=== PATIENT | female | born 1975 | race Caucasian/White ===

== ENCOUNTER 2022-07-21 09:24 | Outpatient (CLI) | payer MEDICAID, SELFPAY ==
[2022-07-21 15:10] LABS: Chlamydia DNA Amplified* NOT DETECTED (No Detected); GC DNA Amplified* NOT DETECTED (No Detected)
== END 2022-07-21 09:25 | disposition home or self-care (01) ==
PROVIDERS: PCP Emergency Medicine; Visit Provider Registered Nurse
DX: Z01.419 Encounter for gynecological examination (general) (routine) without abnormal findings (principal); N92.0 Excessive and frequent menstruation with regular cycle; Z11.3 Encounter for screening for infections with a predominantly sexual mode of transmission
CPT/HCPCS: 84443; 87491; 87591

== ENCOUNTER 2023-01-02 14:39 | Outpatient (CLI) | payer MEDICAID, SELFPAY | END 2023-01-02 14:40 | disposition home or self-care (01) | PROVIDERS: PCP Emergency Medicine; Visit Provider Emergency Medicine | DX: Z13.1 Encounter for screening for diabetes mellitus (principal); Z13.6 Encounter for screening for cardiovascular disorders | CPT/HCPCS: 80061; 82947 ==

== ENCOUNTER 2024-01-31 16:11 | Outpatient (CLI) | payer MEDICAID, SELFPAY ==
--- OUTSIDE RECORDS SUMMARY | 2024-01-31 16:13 | XMS_ITS | Clinical Summary ---
Author Organization [employer] [facility] Address [place], [place] [address] Care Team Providers Care Technician Test Systems Name Role Phone Tatiana Zamora MD Primary Care Provider + Allergies Active Allergy Reactions Criticality Noted Date Comments Bee Venom Protein (Honey Bee) Hives High 10/17/2020 Cephalexin Stomach Upset High 04/22/2023 Severely sensitive and never wants it Codeine Hives,Itching Unknown 11/26/2009 Medications Medication Sig Dispensed Refills Start Date End Date Status ondansetron (ZOFRAN, HYDROCHLORIDE,) 8 mg tabletIndications:Magdaleno sea & vomiting Take 1 tablet by mouth every 8 hours if needed for Nausea/Vomiting. 20 tablet 0 08/10/2014 Active diphenoxylate-atropin e, 2.5-0.025 mg, (LOMOTIL) 2.5-0.025 mg tabletIndications:Lindy rrhea Take 1 tablet by mouth 4 times daily if needed for Diarrhea. 20 tablet 0 08/10/2014 Active citalopram (CELEXA) 40 mg tabletIndications:Dep ression with anxiety TAKE 1 TABLET BY MOUTH ONCE DAILY. 30 tablet 0 12/24/2014 Active multivitamin (MVI) tablet Take 1 tablet by mouth once daily. 0 10/15/2017 Active predniSONE (DELTASONE) 50 mg tab tabletIndications:Env ironmental allergies Take 1 tablet by mouth once daily with a meal. 10 tablet 10/15/2017 Active predniSONE (DELTASONE) 50 mg tab tabletIndications:Tad h Take 1 tablet by mouth once daily with a meal. 10 tablet 04/17/2018 Active phenazopyridine (Pyridium) 100 mg tabletIndications:Com plicated UTI (urinary tract infection) Take 1 Tablet (100 mg) by mouth three times daily after meals. 12 Tablet 04/27/2023 Active Active Problems Problem Noted Date Diagnosed Date Skin cancer 01/30/2011 Excessive sweating 09/04/2010 Tobacco use disorder 09/04/2010 Depression with anxiety 12/27/2009 Immunizations Name Administration Dates Next Due Hepatitis B (Adult) 06/23/2003,02/10/2003,2002 Influenza A (H1N1), Inactivated 04/26/2009 Influenza A (H1N1), Inactiva celestino (Age >=3 Years) 04/19/2009 Influenza, IIV3 (Age 6-35 mos) 03/09/2011,2009 Influenza, IIV3 (Age >=3 years) 04/17/20 12,03/09/2011,02/18/2010,2008,05/30/2005,06/23/2003 Influenza, IIV4 02/29/2016 Tdap 12/01/2010 Family History Medical History Relation Name Comments Diabetes Mother Hypertension Other 1 grandparents, s ibling Stroke Other 2 grandmother Cancer Other 3 grandfather Heart Disease Other 4 extended famil y Hypertension Other 5 grandparents Hyperlipidemia Other 6 grandparents Alcohol/Drug Other 7 grandparents Relation Name Status Comments Mother Other 1 Other 2 Other 3 Other 4 Other 5 Other 6 Other 7 Social History Tobacco Use Types Packs/Day Years Used Date Smoking Tobacco: Every Day Cigarettes 0.3 32.6 Started: 1991 Smokeless Tobacco: Never Tobacco Cessation:Ready to Q uit: Not Asked; Counseling Given: Not Answered Alcohol Use Standard Drinks/Week Comments Yes 3.3 (1 standard drink = 0.6 oz p ure alcohol) PHQ-2 Answer Date Recorded PHQ-2 Score 0 08/12/2018 Sex and Gender Information Value Date Recorded Sex Assigned at Not on file Gender Identity Not on file Sexual Orientation Not on file Obstetrics History Last Filed Vital Signs Vital Sign Reading Time Taken Comments Blood Pressure 127/73 04/22/2023 6:50 PM COOK RELIEF Pulse 65 04/22/2023 6:50 PM COOK RELIEF Temperature 36.3 ??C (97.3 ??F) 04/22/2023 6:50 PM CS T Respiratory Rate 18 04/22/2023 6:50 PM COOK RELIEF Oxygen Saturation 100% 04/22/2023 6:50 PM COOK RELIEF Inhaled Oxygen Concentration - - Weight 69.9 kg (154 lb) 11/02/2017 1:55 PM CDT Height 175.3 cm (5' 9) 10/15/2017 2:39 PM CDT w ith shoes Body Mass Index 22.74 10/15/2017 2:39 PM CDT Plan of Treatment Health Maintenance Due Date Last Done Comments HIV for age 15-65 1989 Hepatitis C screening for age 18-79 1992 BMI (ht and wt on same day) for age 18+ 10/15/2018 10/15/2017 Depression screening for age 12+ 10/15/2018 10/15/2017 Colonoscopy through age 75 11/30/2019 Lipids for age 45-75 11/30/2019 Mammogram for age 45-75 11/30/2019 Tetanus booster 12/01/2020 12/01/2010 COVID-19 vaccine series ( season) 2023 Influenza for age 9-49 02/10/2024 6, 06/10/2014 (Completed outside of [facility]), 04/17/2012, Additional history exists Pap test for age 21-65 07/21/2025 3, 07/21/2022, 10/21/2020, Additional history exists Tdap Completed 12/01/2010 Pneumococcal series for age 6-64 Aged Out No longer eligible based on patient's age to complete this topic Procedures Procedure Name Priority Date/Time Associated Diagnosis Comments HPV THIN PREP Routine 07/21/2022 12:00 PM COOK RELIEF from Last 3 Months or Most Recently Relevant to Health Maintenance Results * HPV HIGH RISK (07/21/2022 12:00 PM COOK RELIEF) TYPE 16 Negative Negative 07/26/2022 11:23 AM COOK RELIEF [facility] TYPE 18 Negative Negative 07/26/2022 11:23 AM COOK RELIEF [facility] OTHER HIGH RISK TYPES Negative Negative 07/26/2022 11:23 AM COOK RELIEF [facility] Other (Cervical) 07/21/2022 12:00 PM COOK RELIEF 07/24/2022 8:18 AM COOK RELIEF Narrative [facility] - 07/26/2022 11:23 AM COOK RELIEF HPV types 16, 18, 31, 33, 35, 39, 45, 51, 52, 56, 58, 59, 66 and 68 DNA were undetectable or below the pre-set threshold. Methodology: Jennifer Ciara 4800 HPV Test Vicky Grigsby NP MICROBIOLOGY [facility] [address] [place] [address], from Last 3 Months or Most Recently Relevant to Health Maintenance Care Teams Technician Test Systems Relationship Specialty Start Date End Date Tatiana Zamora MD PCP - General 12/16/09
--- OUTSIDE RECORDS SUMMARY | 2024-01-31 16:13 | XMS_ITS | Referral Summary ---
Author Organization [place] Address [address] [place] [address] Care Team Providers Care Waterworks Operator Name Role Phone Clinic - Jonelle Myers [facility] Provider Allergies Active Allergy Reactions Criticality Noted Date Comments Bees Hives High 10/17/2020 Codeine 09/04/2003 Medications Medication Sig Dispensed Refills Start Date End Date Status CITALOPRAM HYDROBROMIDE 40 MG OR TABSIndications:Dep ressive disorder, not elsewhere classified,Anxiety state, unspecified 1 TABLET DAILY; must be seen 30 0 09/14/2008 Active Additional Information Patient not taking.Reported on 08/08/2019 predniSONE (DELTASONE) 20 MG tabletIndications:A cute bronchitis, unspecified organism,Wheezing Take 1 tablet (20 mg) by mouth daily 5 tablet 08/08/2019 Active benzonatate (TESSALON) 100 MG capsuleIndications: Acute bronchitis, unspecified organism Take 1 capsule (100 mg) by mouth 3 times daily as needed for cough 30 capsule 08/08/2019 Active albuterol (PROAIR HFA/PROVENTIL HFA/VENTOLIN HFA) 108 (90 Base) MCG/ACT inhalerIndications: Wheezing Inhale 2 puffs into the lungs every 4 hours as needed for shortness of breath / dyspnea or wheezing 18 g 09/30/2019 Active triamcinolone (KENALOG) 0.1 % external creamIndications:De rmatitis Apply topically 2 times daily 30 g 11/26/2019 Active Active Problems Problem Noted Date Diagnosed Date CARDIOVASCULAR SCREENING; LDL GOAL LESS THAN 160 07/21/2009 Anxiety state 11/28/2006 Overview: Problem list name updated by automated process. Provider to review situational depression 07/20/2005 Allergic rhinitis 02/20/2005 Overview: Problem list name updated by automated process. Provider to review Immunizations Name Administration Dates Next Due Influenza (IIV3) PF 05/30/2005 Social History Tobacco Use Types Packs/Day Years Used Date Smoking Tobacco: Every Day Comments:1 pk weekly of and on mostly the last 6 months--had quit for 2 yrs Alcohol Use Standard Drinks/Week Comments No 0 (1 standard drink = 0.6 oz pur e alcohol) Adolescent Education Answer Date Record ed Getting School Help Needed Not on file 03/18 Sex and Gender Information Value Date Recorded Sex Assigned at Not on file Gender Identity Not on file Sexual Orientation Not on file Last Filed Vital Signs Vital Sign Reading Time Taken Comments Blood Pressure 127/84 10/17/2020 8:45 AM CDT Pulse 68 10/17/2020 5:50 AM CDT Temperature 36.5 ??C (97.7 ??F) 10/17/2020 5:37 AM CD T Respiratory Rate 22 10/17/2020 5:37 AM CDT Oxygen Saturation 99% 10/17/2020 8:45 AM CDT Inhaled Oxygen Concentration - - Weight 54.9 kg (121 lb) 08/08/2019 5:05 PM STEREO COMPILER Height 174 cm (5' 8.5) 09/11/2007 1:30 PM CDT Body Mass Index - - Plan of Treatment Not on file Advance Directives For more information, please contact: [phone] * No Code Status (Latest Code Status on File) Date Activated Date Inactivated Comments 05/24/2004 9:39 AM 05/24/2004 10:39 AM Care Teams Waterworks Operator Relationship Specialty Start Date End Date Clinic - [facility] [address] [address] [address] PCP - General 01/18/22
--- OUTSIDE RECORDS SUMMARY | 2024-01-31 16:13 | XMS_ITS | Encounter Summary ---
Author Organization [place] Address [facility] [place] [address] Care Team Providers Care Warehouse Packer Name Role Phone Shy Dennis MD Primary Care Provider Unavailab Shy Marion MD Unavailable Unavailable [facility] Primary Ca re Provider Reason for Visit * Reason Onset Date Comments Derm Problem 11/25/2019 for e-visit Encounter Details Date Type Department Care Team (Late st Contact Info) Description 11/25/2019 MyC Medical Advice [facility] [address] [place] [phone] Shy Dennis MD Derm Problem (for e-visit) Social History Tobacco Use Types Packs/Day Years Used Date Smoking Tobacco: Every Day Comments:1 pk weekly of and on mostly the last 6 months--had quit for 2 yrs Alcohol Use Standard Drinks/Week Comments No 0 (1 standard drink = 0.6 oz pur e alcohol) Sex and Gender Information Value Date Recorded Sex Assigned at Not on file Gender Identity Not on file Sexual Orientation Not on file documented as of this encounter Miscellaneous Notes * Telephone Encounter - Zarina Helm RN - 11/25/2019 2:57 PM CDT Will forward to Dr. Dennis - documented in this encounter Plan of Treatment Not on file documented as of this encounter Visit Diagnoses Not on filedocumented in this encounter Care Teams Warehouse Packer Relationship Specialty Start Date End Date Shy Dennis MD PCP - General 12/20/01 01/17/22 [facility] - Jonelle Marroquin [facility] [address] [place] [address] PCP - General 01/18/22 Shy Dennis MD Assigned PCP 11/06/19 12/23/20 documented as of this encounter
--- OUTSIDE RECORDS SUMMARY | 2024-01-31 16:13 | XMS_ITS | Clinical Summary ---
Author Organization [place] Address [address] [facility] [place] [address] Care Team Providers Care Felt Hat Inspector And Packer Name Role Phone Clinic - Jonelle Myers [facility] Provider Allergies Active Allergy Reactions Criticality Noted [...] Dates Next Due Influenza (IIV3) PF 05/30/2005 Family History Medical History Relation Comments Family History Negative Father Family History Negative Mother Relation Status Comments Father Mother Social History Tobacco Use Types Packs/Day Years [...] 54.9 kg (121 lb) 08/08/2019 5:05 PM ADHESIVE PRIMER Height 174 cm (5' 8.5) 09/11/2007 1:30 PM CDT Body Mass Index - - Plan of Treatment Not on file Advance Directives For more information, please contact: [phone] * No Code Status (Latest Code Status on File) Date Activated Date Inactivated Comments 05/24/2004 9:39 AM 05/24/2004 10:39 AM Care Teams Felt Hat Inspector And Packer Relationship Specialty Start Date End Date Clinic - Jonelle Myers [facility] [address] [address] [address] PCP - General 01/18/22
== END 2024-01-31 16:12 | disposition home or self-care (01) ==
LOC: FRMREF 16:11
PROVIDERS: PCP Emergency Medicine; Visit Provider Registered Nurse
DX: N92.0 Excessive and frequent menstruation with regular cycle (principal)
CPT/HCPCS: 84443

== ENCOUNTER 2024-03-11 12:45 | Outpatient (CLI) | payer MEDICAID, SELFPAY ==
--- OUTSIDE RECORDS SUMMARY | 2024-03-11 12:51 | XMS_ITS | Clinical Summary ---
Author Organization [facility] Address [place], [place] [address] Care Team Providers Care Integration Analyst Name Role Phone Tatiana Zamora MD Primary [...] Date Smoking Tobacco: Every Day Cigarettes 0.3 32.7 Started: 1991 Smokeless Tobacco: Never Tobacco Cessation:Ready [...] Comments Blood Pressure 127/73 04/22/2023 6:50 PM [employer] Pulse 65 04/22/2023 6:50 PM [employer] Temperature 36.3 ??C (97.3 ??F) 04/22/2023 6:50 PM CS T Respiratory Rate 18 04/22/2023 6:50 PM [employer]OL[employer]RIER Oxygen Saturation 100% 04/22/2023 6:50 PM [employer]RI[employer] Inhaled Oxygen Concentration - - Weight 69.9 [...] 12/01/2020 12/01/2010 COVID-19 vaccine series ( season) 2024 Influenza for age 9-49 02/10/2024 6, 06/10/2014 (Completed outside of [facility]), 04/17/2012, Additional history exists Pap test for age 21-65 07/21/2025 3, 07/21/2022, 10/21/2020, Additional history exists Tdap Completed 12/01/2010 Pneumococcal series for age 6-64 Aged Out No longer eligible based on patient's age to complete this topic Procedures Procedure Name Priority Date/Time Associated Diagnosis Comments HEALTH AND SAFETY TECH THIN PREP PAP SCREEN IMAGED Routine 07/21/2022 12:00 PM [employer] SPR[employer]RIER from Last 3 Months or Most Recently Relevant to Health Maintenance Results * HEALTH AND SAFETY TECH THIN PREP PAP SCREEN IMAGED (07/21/2022 12:00 PM [employer]) Case Report Gynecologic Cytology Report ? Case: [id number] ? Authorizing Provider: ??Vicky Grigsby, SHELLIE ?? Collected: ? 07/21/2022 1200 ? Ordering Location: ? [facility] ?Received: ?07/24/2022 0818 ? First Screen: ?Tali West ? Rescreen: ?Charisma Yepez ? Specimen: ?HEALTH AND SAFETY TECH ThinPrep Vial Screening, Cervical ? 08/10/2022 6:13 PM [facility] INTERPRETATION/ RESULT NEGATIVE FOR INTRAEPITHELIAL LESION OR MALIGNANCY (NIL) (none) 08/10/2022 6:13 PM [facility]TRAL [facility] NISM(S) Shift in jorge suggestive of bacterial vaginosis 08/10/2022 6:13 PM [facility] ENTRAL LABORATORY SPECIMEN ADEQUACY Satisfactory for evaluation Endocervical component present 08/10/2022 6:13 PM [facility] LABORATORY-C ENTRAL LABORATORY HPV REQUEST HPV and PAP 08/10/2022 6:13 PM [facility] [employer] LABORATORY-C ENTRAL LABORATORY Date of LMP 07/12/2022 08/10/2022 6:13 PM [facility] ENTRAL LAB[facility]ATORY Last Pap Date 10/21/2020 08/10/2022 6:13 PM [facility] [employer] [employer] LABORATORY- ENTRAL LABORATORY Last Pap Result UNS 6:13 PM [facility] [employer]- ENTRAL LABORATORY Abnormal Pap or [place] Bx in last 5 years No 08/10/2022 6:13 PM [facility] [employer]-C ENTRAL LABORATORY Menstrual Status Regular Periods 08/10/2022 6:13 PM [facility] [employer] [facility] [place] Bx Done Today No 08/10/2022 6:13 PM [facility] [employer] [facility] ENTRAK LABORATORY Additional Information 08/10/2022 6:13 PM [facility] [employer] ENTRAL LABORATORY Comment: Interpreted at [facility] [employer] [facility] - [address], [place] [address] Automated Review Successful 08/10/2022 6:13 PM [facility] [employer] [facility] ENTRAK LABORATORY Comment:Specimen processed s uccessfully by automated propeller driven airplane mechanic device, ThinPrep Imaging System, [employer] ANCILLARY TESTING HEALTH AND SAFETY TECH HPV Ordered, Please see separate report 08/10/2022 6:13 PM [facility] Note The pap test is a screening technique, not a diagnostic procedure. It is used primarily to screen for squamous cancers and precursor lesions. Published studies have shown that it is subject to both false negative and false positive results. The pap test should not be used as the sole means to diagnose or exclude pre-malignant and malignant lesions. 08/10/2022 6:13 PM [facility] [employer] Other (Cervical) 07/21/2022 12:00 PM [employer] 07/24/2022 8:18 AM [employer] Vicky Grigsby NP PATHOLOGY/CYTOLOG Y [facility] [address] [place] [address], [place] from Last 3 Months or Most Recently Relevant to Health Maintenance Care Teams Integration Analyst Relationship Specialty Start Date End Date Tatiana Zamora MD PCP - General 12/16/09
--- OUTSIDE RECORDS SUMMARY | 2024-03-11 12:52 | XMS_ITS | Encounter Summary ---
Author Organization [place] Address [facility] [place] [address] Care Team Providers Care Shear Tender Name Role Phone Shy Dennis MD Primary Care Provider Unavailab Shy Marion MD Unavailable Unavailable [facility] Primary Ca re Provider Reason for Visit * Reason Onset Date Comments Derm Problem 11/25/2019 for e-visit Encounter Details Date Type Department Care Team (Late st Contact Info) Description 11/25/2019 MyC Medical Advice [facility] [address] [place] [phone] Syh Dennis MD Derm Problem (for e-visit) Social [...] on filedocumented in this encounter Care Teams Shear Tender Relationship Specialty Start Date End Date Shy Dennis MD PCP - General 12/20/01 01/17/22 [facility] - Jonelle Marroquin [facility] [address] [place] [address] PCP - General 01/18/22 Shy Dennis MD Assigned PCP 11/06/19 12/23/20 documented as of this encounter
--- OUTSIDE RECORDS SUMMARY | 2024-03-11 12:52 | XMS_ITS | Clinical Summary ---
Author Organization [place] Address [address] [place] [address] Care Team Providers Care Medical Support Specialist Name Role Phone Clinic - Jonelle Myers [facility] Provider Allergies Active Allergy Reactions Criticality Noted [...] 54.9 kg (121 lb) 08/08/2019 5:05 PM MANAGER BACKGROUND Height 174 cm (5' 8.5) 09/11/2007 1:30 PM CDT Body Mass Index - - Plan of Treatment Not on file Advance Directives For more information, please contact: [phone] * No Code Status (Latest Code Status on File) Date Activated Date Inactivated Comments 05/24/2004 9:39 AM 05/24/2004 10:39 AM Care Teams Medical Support Specialist Relationship Specialty Start Date End Date Clinic - Jonelle Myers [facility] [address] [address] [address] PCP - General 01/18/22
--- OUTSIDE RECORDS SUMMARY | 2024-03-11 12:52 | XMS_ITS | Referral Summary ---
Author Organization [employer] [place] Address [address] [place] [address] Care Team Providers Care Valve Tester Name Role Phone Clinic - Jonelle Myers [facility] Provider Allergies Active Allergy Reactions Criticality [...] 54.9 kg (121 lb) 08/08/2019 5:05 PM ALGEBRA TUTOR Height 174 cm (5' 8.5) 09/11/2007 1:30 PM CDT Body Mass Index - - Plan of Treatment Not on file Advance Directives For more information, please contact: [phone] * No Code Status (Latest Code Status on File) Date Activated Date Inactivated Comments 05/24/2004 9:39 AM 05/24/2004 10:39 AM Care Teams Valve Tester Relationship Specialty Start Date End Date Clinic - [facility] [address] [address] [address] PCP - General 01/18/22
--- NOTE | 2024-03-11 13:00 | CRLHL7_ITS ---
For Patients: As a result of the Century Cures Act, medical imaging exams and procedure reports are released immediately into your electronic medical record. You may view this report before your referring provider. If you have questions, please contact your health care provider. INDICATION: excessive and frequent menstrual bleeding COMPARISON: none TECHNIQUE: 2D desir scale and color Doppler images were acquired of the pelvis using a transabdominal and transvaginal approach. FINDINGS: Left posterior intramural fibroid is present measuring 1.5 x 1.5 x 1.7 cm. Left fundal intramural fibroid measures 2.6 x 2.4 x 2.6 cm. Uterus measures 9.9 cm in length by 6.3 cm in AP diameter by 6.1 cm in transverse dimension. The endometrial lining measures 6.5 mm in composite thickness. Incidental endometrial cyst is present measuring 4 x 4 x 4 millimeters. IUD is present in good position within the endometrial canal. The right ovary measures 3.2 x 1.2 x 1.6 cm in size and the left ovary measures 2.4 x 1.2 x 2.2 cm. The ovaries demonstrate normal arterial and venous blood flow on color Doppler analysis, as visualized. There are no suspicious fluid collections within the cul-de-sac. IMPRESSION: Endometrial thickness 6.5 millimeters. Intramural uterine fibroids measure 2.6 cm and 1.7 cm. Good position of the IUD within the endometrial canal. Dictated by Mulugeta Kwon MD @ 03/11/2024 10:28:41 PM (Electronically Signed)
== END 2024-03-11 12:46 | disposition home or self-care (01) ==
LOC: US 12:46
PROVIDERS: PCP Emergency Medicine; Visit Provider Registered Nurse
DX: N92.0 Excessive and frequent menstruation with regular cycle (principal); D25.1 Intramural leiomyoma of uterus; R93.89 Abnormal findings on diagnostic imaging of other specified body structures
CPT/HCPCS: 76830; 76856

== ENCOUNTER 2024-04-22 17:35 | Outpatient (CLI) | payer MEDICAID, SELFPAY ==
--- OUTSIDE RECORDS SUMMARY | 2024-04-22 17:41 | XMS_ITS | Referral Summary ---
Author Organization [place] Address [address] [facility] [place] [address] Care Team Providers Care Photovoltaic Panel Installer Name Role Phone [facility] - Jonelle Myers [facility] Provider Allergies Active Allergy Reactions Criticality Noted Date Comments Bees Hives High 10/17/2020 Codeine 09/04/2003 Medications CITALOPRAM HYDROBROMIDE 40 MG OR TABSIndications: Depressive disorder, not elsewhere classified,Anxie ty state, unspecified 1 TABLET DAILY; must be seen 30 0 9 Active Additional Information Patient not taking.Reported on 08/08/2019 predniSONE (DELTASONE) 20 MG tabletIndication s:Acute bronchitis, unspecified organism,Wheezin g Take 1 tablet (20 mg) by mouth daily 5 tablet 0 Active benzonatate (TESSALON) 100 MG capsuleIndicatio ns:Acute bronchitis, unspecified organism Take 1 capsule (100 mg) by mouth 3 times daily as needed for cough 30 capsule 0 Active albuterol (PROAIR HFA/PROVENTIL HFA/VENTOLIN HFA) 108 (90 Base) MCG/ACT inhalerIndicatio ns:Wheezing Inhale 2 puffs into the lungs every 4 hours as needed for shortness of breath / dyspnea or wheezing 18 g 0 Active triamcinolone (KENALOG) 0.1 % external creamIndications :Dermatitis Apply topically 2 times daily 30 g 0 Active Active Problems Problem Noted Date Diagnosed Date CARDIOVASCULAR SCREENING; LDL GOAL LESS THAN 160 07/21/2009 Anxiety state 11/28/2006 Overview (03/11/2015): Problem list name updated by automated process. Provider to review situational depression 07/20/2005 Allergic rhinitis 02/20/2005 Overview (03/11/2015): Problem list name updated by automated process. [...] School Help Needed Not on file 03/18 Comments No Sex and Gender Information Value Date Recorded Sex Assigned at Not on file Legal Sex Female 3:12 AM MECHANICAL ENGINEERING TECHNOLOGIST Gender Identity Not on file Sexual Orientation [...] 54.9 kg (121 lb) 08/08/2019 5:05 PM MECHANICAL ENGINEERING TECHNOLOGIST Height 174 cm (5' 8.5) 09/11/2007 1:30 PM CDT Body Mass Index - - Plan of Treatment Not on file Advance Directives For more information, please contact: [phone] * No Code Status (Latest Code Status on File) Date Activated Date Inactivated Comments 05/24/2004 9:39 AM 05/24/2004 10:39 AM Care Teams Photovoltaic Panel Installer Relationship Specialty Start Date End Date Clinic - Jonelle Myers [facility] [address] [address] [address] PCP - General 01/18/22
--- OUTSIDE RECORDS SUMMARY | 2024-04-22 17:41 | XMS_ITS | Clinical Summary ---
Author Organization [employer] [facility] Address [place], [place] [address] Care Team Providers Care Cast Iron Dipper Name Role Phone Tatiana Zamora MD Primary [...] Date Smoking Tobacco: Every Day Cigarettes 0.3 32.9 Started: 1991 Smokeless Tobacco: Never Tobacco Cessation:Ready [...] Comments Blood Pressure 127/73 04/22/2023 6:50 PM FRAUD ANALYST Pulse 65 04/22/2023 6:50 PM FRAUD ANALYST Temperature 36.3 ??C (97.3 ??F) 04/22/2023 6:50 PM CS T Respiratory Rate 18 04/22/2023 6:50 PM FRAUD ANALYST Oxygen Saturation 100% 04/22/2023 6:50 PM FRAUD ANALYST Inhaled Oxygen Concentration - - Weight 69.9 [...] 9-49 02/10/2024 6, 06/10/2014 (Completed outside of [facility]), 04/17/2012, Additional history exists Pap test for age 21-65 07/21/2025 3, 07/21/2022, 10/21/2020, Additional history exists Tdap Completed 12/01/2010 Pneumococcal series for age 6-64 Aged Out No longer eligible based on patient's age to complete this topic Procedures Procedure Name Priority Date/Time Associated Diagnosis Comments [employer] TE[employer]ER THIN PREP PAP SCREEN IMAGED Routine 07/21/2022 12:00 PM FRAUD ANALYST from Last 3 Months or Most Recently Relevant to Health Maintenance Results * [employer] TE[employer]ER THIN PREP PAP SCREEN IMAGED (07/21/2022 12:00 PM FRAUD ANALYST) Case Report Gynecologic Cytology Report ? Case: [id number] ? Authorizing Provider: ??Vicky Grigsby, SHELLIE ?? Collected: ? 07/21/2022 1200 ? Ordering Location: ? [facility] ?Received: ?07/24/2022 0818 ? First Screen: ?Tali West ? Rescreen: ?Charisma Yepez ? Specimen: ?[employer] ThinPrep Vial Screening, Cervical ? 08/10/2022 6:13 PM FRAUD ANALYST [facility] INTERPRETATION/ RESULT NEGATIVE FOR INTRAEPITHELIAL LESION OR MALIGNANCY (NIL) (none) 08/10/2022 6:13 PM [facility] NISM(S) Shift in jorge suggestive of bacterial vaginosis 08/10/2022 6:13 PM [facility] SPECIMEN ADEQUACY Satisfactory for evaluation Endocervical component present 08/10/2022 6:13 PM FRAUD ANALYST [facility]-C ENTRAL LABORATORY HPV REQUEST HPV and PAP 08/10/2022 6:13 PM FRAUD ANALYST [email or web address] LABORATORY-C ENTRAL LABORATORY Date of LMP 07/12/2022 08/10/2022 6:13 PM FRAUD ANALYST [facility] Last Pap Date 10/21/2020 08/10/2022 6:13 PM FRAUD ANALYST [facility]- ENTRAL LABORATORY Last Pap Result UNS 6:13 PM FRAUD ANALYST [facility]- ENTRAL LABORATORY Abnormal Pap or Wells Bx in last 5 years No 08/10/2022 6:13 PM FRAUD ANALYST [facility] LAB[facility] Menstrual Status Regular Periods 08/10/2022 6:13 PM FRAUD ANALYST [facility] Wells Bx Done Today No 08/10/2022 6:13 PM FRAUD ANALYST [facility] Additional Information 08/10/2022 6:13 PM FRAUD ANALYST [facility] Comment: Interpreted at [facility] [employer] [facility] - [address], [place] [address] Automated Review Successful 08/10/2022 6:13 PM FRAUD ANALYST [facility] Comment:Specimen processed s uccessfully by automated butadiene converter helper device, ThinPrep Imaging System, [employer] ANCILLARY TESTING [employer] HPV Ordered, Please see separate report 08/10/2022 6:13 PM FRAUD ANALYST [facility] Note The pap test is a screening technique, not a diagnostic procedure. It is used primarily to screen for squamous cancers and precursor lesions. Published studies have shown that it is subject to both false negative and false positive results. The pap test should not be used as the sole means to diagnose or exclude pre-malignant and malignant lesions. 08/10/2022 6:13 PM FRAUD ANALYST [facility] Other (Cervical) 07/21/2022 12:00 PM FRAUD ANALYST 07/24/2022 8:18 AM FRAUD ANALYST Vicky Grigsby NP PATHOLOGY/CYTOLOG Y [facility] [address] [place] [address], [place] from Last 3 Months or Most Recently Relevant to Health Maintenance Care Teams Cast Iron Dipper Relationship Specialty Start Date End Date Tatiana Zamora MD PCP - General 12/16/09
--- OUTSIDE RECORDS SUMMARY | 2024-04-22 17:41 | XMS_ITS | Encounter Summary ---
Author Organization [place] Address [address] [place] [address]. [place] [address] Care Team Providers Care Conflict Resolution Professional Name Role Phone Shy Dennis MD Primary Care Provider Unavailab Shy Marion MD Unavailable Unavailable Clinic - [facility] Primary Ca re Provider Reason for Visit * Reason Onset Date Comments Derm Problem 11/25/2019 for e-visit Encounter Details Date Type Department Care Team (Late st Contact Info) Description 11/25/2019 MyC Medical Advice [facility] [address] [place] [address] Shy Dennis MD Derm Problem (for e-visit) Social History Tobacco Use Types Packs/Day Years Used Date Smoking Tobacco: Every Day Comments:1 pk weekly of and on mostly the last 6 months--had quit for 2 yrs Alcohol Use Standard Drinks/Week Comments No 0 (1 standard drink = 0.6 oz pur e alcohol) Comments No Sex and Gender Information Value Date Recorded Sex Assigned at Not on file 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 Dennis - documented in this encounter Plan of Treatment Not on file documented as of this encounter Visit Diagnoses Not on filedocumented in this encounter Care Teams Conflict Resolution Professional Relationship Specialty Start Date End Date Shy Dennis MD PCP - General 12/20/01 01/17/22 [facility] [address] [place] [address] PCP - General 01/18/22 Shy Dennis MD Assigned PCP 11/06/19 12/23/20 documented as of this encounter
--- OUTSIDE RECORDS SUMMARY | 2024-04-22 17:41 | XMS_ITS | Clinical Summary ---
Author Organization [place] Address [address] [facility] 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
[2024-04-25 00:22] LABS: QuantiFERON Mitogen minus NIL 9.92 IU/mL; QuantiFERON NIL 0.08 IU/mL; Quantiferon Plus TB1 minus NIL 0.01 IU/mL (<=0.34); Quantiferon Plus TB2 minus NIL 0.02 IU/mL (<=0.34); Quantiferon TB Gold Plus Negative (Negative)
== END 2024-04-22 17:36 | disposition home or self-care (01) ==
LOC: LAB 17:39
PROVIDERS: PCP Emergency Medicine; Visit Provider Emergency Medicine
DX: Z11.1 Encounter for screening for respiratory tuberculosis (principal)
CPT/HCPCS: 36415; 86480

== ENCOUNTER 2024-04-22 17:49 | Outpatient (CLI) | payer MEDICAID, SELFPAY ==
--- NOTE | 2024-04-22 18:20 | CRLHL7_ITS ---
For Patients: As a result of the Century Cures Act, medical imaging exams and procedure reports are released immediately into your electronic medical record. You may view this report before your referring provider. If you have questions, please contact your health care provider. BILATERAL SCREENING MAMMOGRAM WITH COMPUTER-AIDED DETECTION AND TOMOSYNTHESIS TECHNIQUE: CC and MLO views were obtained. These mammographic images have been obtained using full-field digital technique. These mammographic images were interpreted with the benefit of computer-aided detection. Breast Tomosynthesis was used in this interpretation. COMPARISON FILM: Baseline. FINDINGS: The breasts are heterogeneously dense, which may obscure small masses. IMPRESSION: There is no radiographic evidence for malignancy. ASSESSMENT: BI-RADS Category 1: Negative RECOMMENDATION: Routine screening mammogram in 1 year. A lay language report of this examination will be provided to the patient. Mulugeta Kwon M.D. Diagnostic Radiologist [email or web address] SP/Dictated by: Mulugeta Kwon MD @ 04/23/2024 10:49:00 AM (Electronically Signed)
== END 2024-04-22 17:50 | disposition home or self-care (01) ==
LOC: MAMMO 17:50
PROVIDERS: PCP Emergency Medicine; Visit Provider Registered Nurse
DX: Z12.31 Encounter for screening mammogram for malignant neoplasm of breast (principal); R92.333 Mammographic heterogeneous density, bilateral breasts
CPT/HCPCS: 77063; 77067

== ENCOUNTER 2024-11-06 11:39 | Outpatient (CLI) | payer MEDICAID, SELFPAY | END 2024-11-06 11:40 | disposition home or self-care (01) | PROVIDERS: PCP Emergency Medicine; Visit Provider Emergency Medicine | DX: R63.5 Abnormal weight gain (principal); R53.83 Other fatigue | CPT/HCPCS: 80048; 84443 ==

== ENCOUNTER 2024-12-30 13:10 | Outpatient (CLI) | payer MEDICAID, SELFPAY ==
[2024-12-30 16:01] LABS: Chlamydia DNA Amplified* NOT DETECTED (No Detected); GC DNA Amplified* NOT DETECTED (No Detected)
[2024-12-30 17:32] LABS: Bacterial Vaginosis* POSITIVE (Negative); Candida glab/krus NOT DETECTED (No Detected)
== END 2024-12-30 13:11 | disposition home or self-care (01) ==
PROVIDERS: PCP Emergency Medicine; Visit Provider Registered Nurse
DX: N92.0 Excessive and frequent menstruation with regular cycle (principal)
CPT/HCPCS: 81513; 87481; 87491; 87591; 87661